=== PATIENT | male | born 1955 | race Caucasian/White ===

== ENCOUNTER 2021-08-11 14:10 | Outpatient (CLI) | payer MEDICARE | END 2021-08-11 14:11 | disposition home or self-care (01) | LOC: LABBT 14:10 | PROVIDERS: ATTEND Specialist | DX: Z01.818 Encounter for other preprocedural examination (principal); Z20.822 Contact with and (suspected) exposure to COVID-19 | CPT/HCPCS: 87811; 93005; 93010 ==

== ENCOUNTER 2021-08-16 09:04 | Day surgery (SDC) | payer MEDICARE ==
[2021-08-15 09:40] VITALS: BMI 31.1
[2021-08-16 09:38] LABS: #Basophils 0.1 thou/uL (0.0-0.2); #Eosinphils 0.3 thou/uL (0.0-0.7); #Lymphocytes 1.7 thou/uL (1.20-3.40); #Monocytes 1.3 thou/uL (0.11-0.59); #Neutrophils 8.3 thou/uL (1.40-6.50); %Basophils 0.8 % (0.0-1.0); %Eosinophils 2.5 % (0.0-10.0); %Lymphocytes 14.4 % (21.0-51.0); %Monocytes 10.9 % (0.0-10.0); %Neutrophils 71.4 % (42.0-75.0); Hemoglobin 11.2 g/dL (14.0-18.0); Mean Corpuscular HGB CONC 30.2 g/dL (32.0-36.0); Mean Corpuscular Hemoglobin 28.4 pg (27.0-31.0); Mean Corpuscular Volume 93.9 fL (78.0-98.0); Mean Platelet Volume 7.6 fL (7.4-10.4); Platelet Count 140 thou/uL (130-400); RBC Distribution Width 15.4 % (11.5-14.5); Red Blood Cell (RBC) Count 3.94 mill/uL (4.70-6.10); White Blood Cell (WBC) Count 11.6 thou/uL (4.8-10.8)
[2021-08-16 09:55] LABS: Anion Gap 13 mmol/L (10-20); BUN (Urea Nitrogen) 32 mg/dL (8.4-25.7); Calc. Creatinine Clearance 22 mL/min (70-130); Calcium 8.3 mg/dL (7.8-10.44); Carbon Dioxide 29 mmol/L (23-31); Chloride 101 mmol/L (98-107); Estimated GFR 13; Glucose 95 mg/dL (80-115); Sodium 139 mmol/L (136-145)
[2021-08-16] MEDS ORDERED: Heparin 5,000 UNITS/ML VIAL ONE (10:10)
[2021-08-16] MEDS ORDERED: Lidocaine 2% PF 5 ML VIAL ONE (10:10)
[2021-08-16] MEDS ORDERED: Bupivacaine PF 0.5% 30 ML VIAL ONE (10:10)
[2021-08-16] MEDS ORDERED: Lidocaine 1% w/Epinephrine 1:100K 20 ML VIAL ONE (10:12)
[2021-08-16] MEDS ORDERED: Protamine Sulfate 50 MG/5 ML VIAL ONE (10:12)
[2021-08-16] MEDS ORDERED: fentaNYL Citrate/PF 100 MCG/2 ML SYRINGE ONE (10:15)
[2021-08-16] MEDS ORDERED: SUGAMMADEX SODIUM 200 MG/2 ML VIAL ONE (10:16)
[2021-08-16] MEDS ORDERED: CEFAZOLIN 2 GM VIAL ONE (10:21)
[2021-08-16] MEDS ORDERED: Sodium Chloride 0.9% 100 ML ONE (10:22)
[2021-08-16] MEDS ORDERED: Heparin 10,000 UNITS/ 10 ML VIAL ONE (10:35)
[2021-08-16] MEDS ORDERED: Heparin 1,000 UNITS/ML VIAL ONE (14:09)
== END 2021-08-16 14:20 | disposition home or self-care (01) ==
LOC: SDC 09:04
PROVIDERS: ATTEND Specialist
PROC: 0WHG43Z Insertion of Infusion Device into Peritoneal Cavity, Percutaneous Endoscopic Approach (ICD-10-PCS; principal; 2021-08-16)
PROC: 031C0ZF Bypass Left Radial Artery to Lower Arm Vein, Open Approach (ICD-10-PCS; 2021-08-16)
DX: N18.6 End stage renal disease (principal); K74.5 Biliary cirrhosis, unspecified; R18.8 Other ascites; Z79.899 Other long term (current) drug therapy; Z88.5 Allergy status to narcotic agent; Z88.8 Allergy status to other drugs, medicaments and biological substances; Z99.2 Dependence on renal dialysis
CPT/HCPCS: 80048; 85025; C1776; J0690; J1644; J2001; J2720; J3490; S0020

== ENCOUNTER 2021-09-05 16:53 | Inpatient (IN) | payer MEDICARE ==
[~2021-09-05 16:53] MED LIST: Iopamidol 370 76% 100 ML VIAL ONE
[2021-09-05 17:34] LABS: Hemoglobin 11.9 g/dL (14.0-18.0); Mean Corpuscular HGB CONC 31.1 g/dL (32.0-36.0); Mean Corpuscular Volume 90.1 fL (78.0-98.0); Mean Platelet Volume 8.4 fL (7.4-10.4); Platelet Count 109 thou/uL (130-400); RBC Distribution Width 14.7 % (11.5-14.5); Red Blood Cell (RBC) Count 4.24 mill/uL (4.70-6.10); White Blood Cell (WBC) Count 7.9 thou/uL (4.8-10.8)
[2021-09-05 18:15] LABS: Band 4 % (5-11); Lymphocytes 9 % (21-51); MDiff Complete? YES; Monocytes 12 % (0-10); Neutrophil 75 % (42-75); Platelet Morphology Comment Appears Decreased; RBC Morphology Normal
[2021-09-05 18:20] LABS: SARS-CoV-2 NAA Rapid Test DETECTED (NotDetected)
[2021-09-05 18:29] LABS: ALT (SGPT) 14 U/L (8-55); AST (SGOT) 31 U/L (5-34); Albumin 2.7 g/dL (3.4-4.8); Alkaline Phosphatase 105 U/L (40-110); Anion Gap 12 mmol/L (10-20); BUN (Urea Nitrogen) 18 mg/dL (8.4-25.7); Bilirubin, Total 0.7 mg/dL (0.2-1.2); Calc. Creatinine Clearance 0 mL/min (70-130); Calcium 7.7 mg/dL (7.8-10.44); Carbon Dioxide 28 mmol/L (23-31); Chloride 98 mmol/L (98-107); Estimated GFR 21; Globulin 3.5 g/dL (2.4-3.5); Glucose 105 mg/dL (80-115); Potassium 3.4 mmol/L (3.5-5.1); Protein, Total 6.2 g/dL (5.8-8.1); Sodium 135 mmol/L (136-145)
[2021-09-05] MEDS ORDERED: Acetaminophen 500 MG TAB ONE ×2 (18:37)
[2021-09-05 18:51] LABS: CKMB 0.9 ng/mL (0-6.6)
[2021-09-05] MEDS ORDERED: Cefepime 2 GM VIAL ONE (20:23)
[2021-09-05] MEDS ORDERED: Vancomycin 1 GM/200 ML BAG ONE ×2 (21:43)
[2021-09-06 00:05] VITALS: BMI 29.2
[2021-09-06] MEDS: Acetaminophen 325 MG TAB PO PRN ×2 (04:27→17:23)
[2021-09-06] MEDS ORDERED: Acetaminophen 325 MG TAB PO PRN (07:58)
[2021-09-06] MEDS ORDERED: Potassium Chloride 20 MEQ TAB PO SCH (08:00)
[2021-09-06] MEDS ORDERED: [UNRECOGNIZED DRUG - OTHER] FS SCH (08:15)
[2021-09-06 08:44] LABS: Vancomycin, Random 11.3 ug/mL (See Comment)
[2021-09-06] MEDS ORDERED: Cefepime 1 GM in Sodium Chloride 0.9% 100 ML IVPB SCH (09:00)
[2021-09-06] MEDS ORDERED: Vancomycin 1 GM in Premix Bag 1 BAG IVPB SCH (09:15)
[2021-09-06] MEDS: Carvedilol 6.25 MG TAB PO SCH ×2 (09:24→16:21)
[2021-09-06] MEDS: Heparin 5,000 UNITS/ML VIAL SC SCH ×3 (09:40→20:25)
[2021-09-06] MEDS: HYDROcodone/Acetaminophen 5/325 mg Tablet PO PRN ×2 (09:53→20:24)
[2021-09-06] MEDS ORDERED: Albuterol 200 PUFF (6.7GM INHALER) INH PRN (13:35)
[2021-09-06] MEDS: Benzonatate 100 MG CAP PO PRN (16:29)
[2021-09-06] MEDS ORDERED: diphenhydrAMINE 50 MG CAP PO SCH (22:30)
[2021-09-07 05:00] LABS: Vancomycin, Random 21.3 ug/mL (See Comment)
[2021-09-07 05:12] LABS: Anion Gap 14 mmol/L (10-20); BUN (Urea Nitrogen) 33 mg/dL (8.4-25.7); Calc. Creatinine Clearance 20 mL/min (70-130); Calcium 7.4 mg/dL (7.8-10.44); Carbon Dioxide 24 mmol/L (23-31); Chloride 100 mmol/L (98-107); Estimated GFR 12; Glucose 90 mg/dL (80-115); Potassium 3.9 mmol/L (3.5-5.1); Sodium 134 mmol/L (136-145)
[2021-09-07 09:00] LABS: HBSAB Concentration Less than 8.00 mIU/mL; Hep B Surf AB Non-Reactive (NonReactive)
[2021-09-07] MEDS ORDERED: Heparin 10,000 UNITS/ 10 ML VIAL ONE (09:00)
[2021-09-07 09:01] LABS: HBSAg Index 0.74 S/CO (0-0.99); Hep B Surf Ag Non-Reactive S/CO (NonReactive)
[2021-09-07] MEDS: Ascorbic Acid 500 mg Chewable Tablet PO SCH (10:11)
[2021-09-07] MEDS: Zinc Sulfate 220 MG CAP PO SCH (10:11)
[2021-09-07] MEDS: Carvedilol 6.25 MG TAB PO SCH ×2 (10:12→19:09)
[2021-09-07] MEDS: Cefepime 1 GM in Sodium Chloride 0.9% 100 ML IVPB SCH (10:13)
[2021-09-07] MEDS: Heparin 5,000 UNITS/ML VIAL SC SCH ×3 (10:13→21:54)
[2021-09-07] MEDS: Benzonatate 100 MG CAP PO PRN (21:53)
[2021-09-07] MEDS: Acetaminophen 325 MG TAB PO PRN (21:53)
[2021-09-07] MEDS ORDERED: diphenhydrAMINE 50 MG CAP PO SCH (22:00)
[2021-09-08 04:35] LABS: Anion Gap 12 mmol/L (10-20); BUN (Urea Nitrogen) 21 mg/dL (8.4-25.7); Calc. Creatinine Clearance 25 mL/min (70-130); Calcium 7.6 mg/dL (7.8-10.44); Carbon Dioxide 26 mmol/L (23-31); Chloride 100 mmol/L (98-107); Estimated GFR 15; Glucose 86 mg/dL (80-115); Mean Corpuscular HGB CONC 31.6 g/dL (32.0-36.0); Mean Corpuscular Hemoglobin 28.8 pg (27.0-31.0); Mean Platelet Volume 8.3 fL (7.4-10.4); Platelet Count 102 thou/uL (130-400); Potassium 3.4 mmol/L (3.5-5.1); RBC Distribution Width 14.5 % (11.5-14.5); Red Blood Cell (RBC) Count 3.82 mill/uL (4.70-6.10); Sodium 135 mmol/L (136-145); White Blood Cell (WBC) Count 4.8 thou/uL (4.8-10.8)
[2021-09-08] MEDS ORDERED: diphenhydrAMINE 50 MG CAP PO PRN (08:13)
[2021-09-08] MEDS: Carvedilol 6.25 MG TAB PO SCH ×2 (08:58→17:44)
[2021-09-08] MEDS: Ascorbic Acid 500 mg Chewable Tablet PO SCH (08:58)
[2021-09-08] MEDS: Heparin 5,000 UNITS/ML VIAL SC SCH ×3 (08:59→21:27)
[2021-09-08] MEDS: Cefepime 1 GM in Sodium Chloride 0.9% 100 ML IVPB SCH (08:59)
[2021-09-08] MEDS: Zinc Sulfate 220 MG CAP PO SCH (09:00)
[2021-09-08] MEDS: Benzonatate 100 MG CAP PO PRN ×2 (09:00→21:27)
[2021-09-08] MEDS: Acetaminophen 325 MG TAB PO PRN ×2 (11:39→21:27)
[2021-09-09 09:23] LABS: Vancomycin, Random 11.5 ug/mL (See Comment)
[2021-09-09] MEDS ORDERED: Vancomycin 1 GM in Premix Bag 1 BAG IVPB SCH ×2 (10:15→13:00)
[2021-09-09 13:12] VITALS: TEMP 98.9
[2021-09-09] MEDS ORDERED: Heparin 10,000 UNITS/ 10 ML VIAL ONE (13:36)
[2021-09-09] MEDS: Carvedilol 6.25 MG TAB PO SCH (13:38)
[2021-09-09] MEDS: Heparin 5,000 UNITS/ML VIAL SC SCH (13:38)
[2021-09-09] MEDS: Ascorbic Acid 500 mg Chewable Tablet PO SCH (13:38)
[2021-09-09] MEDS: Zinc Sulfate 220 MG CAP PO SCH (13:39)
[2021-09-09 13:54] VITALS: BP 123/75
[2021-09-09] MEDS: Cefepime 1 GM in Sodium Chloride 0.9% 100 ML IVPB SCH (14:07)
== END 2021-09-09 15:50 | disposition home or self-care (01) | DRG 871 ==
LOC: ERS 16:53 → 2NO 20:28
PROVIDERS: ADMIT Internal Medicine; ATTEND Internal Medicine
PROC: 8E0ZXY6 Isolation (ICD-10-PCS; principal; 2021-09-05)
PROC: 5A1D70Z Performance of Urinary Filtration, Intermittent, Less than 6 Hours Per Day (ICD-10-PCS; 2021-09-05)
PROC: 3E03329 Introduction of Other Anti-infective into Peripheral Vein, Percutaneous Approach (ICD-10-PCS; 2021-09-05)
DX: A41.89 Other specified sepsis (principal); U07.1 COVID-19; N18.6 End stage renal disease; I21.A1 Myocardial infarction type 2; I13.2 Hypertensive heart and chronic kidney disease with heart failure and with stage 5 chronic kidney disease, or end stage renal disease; I50.32 Chronic diastolic (congestive) heart failure; J90 Pleural effusion, not elsewhere classified; F17.220 Nicotine dependence, chewing tobacco, uncomplicated; E78.00 Pure hypercholesterolemia, unspecified; F32.A Depression, unspecified; Z88.5 Allergy status to narcotic agent; Z88.8 Allergy status to other drugs, medicaments and biological substances; Z98.52 Vasectomy status; Z99.2 Dependence on renal dialysis
CPT/HCPCS: 36415; 71045; 71275; 80048; 80053; 80202; 82553; 83605; 83690; 83880; 84145; 84484; 85025; 85027; 86706; 87040; 87340; 90935; 93005; G0257; J0692; J1644; J1956; J3370; J3490; Q9967; U0002

== ENCOUNTER 2021-10-12 13:49 | Outpatient (CLI) | payer OTHER | END 2021-10-12 13:50 | disposition home or self-care (01) | LOC: RAD 13:49 | PROVIDERS: ATTEND Internal Medicine Nephrology | DX: K59.00 Constipation, unspecified (principal); T85.691A Other mechanical complication of intraperitoneal dialysis catheter, initial encounter | CPT/HCPCS: 74018 ==

== ENCOUNTER 2022-01-18 13:11 | Observation (INO) | payer MEDICARE, OTHER ==
[2022-01-18 14:38] LABS: #Basophils 0.1 thou/uL (0.0-0.2); #Eosinphils 0.3 thou/uL (0.0-0.7); #Lymphocytes 0.8 thou/uL (1.20-3.40); #Monocytes 0.7 thou/uL (0.11-0.59); #Neutrophils 6.7 thou/uL (1.40-6.50); %Basophils 0.6 % (0.0-1.0); %Eosinophils 3.8 % (0.0-10.0); %Lymphocytes 9.6 % (21.0-51.0); %Monocytes 8.2 % (0.0-10.0); %Neutrophils 77.8 % (42.0-75.0); Hemoglobin 10.9 g/dL (14.0-18.0); Mean Corpuscular Hemoglobin 31.5 pg (27.0-31.0); Mean Corpuscular Volume 95.3 fl (78.0-98.0); Mean Platelet Volume 8.6 fL (7.4-10.4); Platelet Count 87 10x3/uL (130-400); RBC Distribution Width 15.6 % (11.5-14.5); Red Blood Cell (RBC) Count 3.46 mill/uL (4.70-6.10); White Blood Cell (WBC) Count 8.6 10x3/uL (4.8-10.8)
[2022-01-18 15:00] LABS: ALT (SGPT) 14 U/L (8-55); AST (SGOT) 20 U/L (5-34); Albumin 2.4 g/dL (3.4-4.8); Alkaline Phosphatase 89 U/L (40-110); Anion Gap 12 mmol/L (10-20); BUN (Urea Nitrogen) 47 mg/dL (8.4-25.7); Bilirubin, Total 0.6 mg/dL (0.2-1.2); Calc. Creatinine Clearance 0 mL/min (70-130); Calcium 7.5 mg/dL (7.8-10.44); Carbon Dioxide 26 mmol/L (23-31); Chloride 103 mmol/L (98-107); Estimated GFR 7; Globulin 2.8 g/dL (2.4-3.5); Glucose 148 mg/dL (80-115); Potassium 3.7 mmol/L (3.5-5.1); Protein, Total 5.2 g/dL (5.8-8.1); Sodium 137 mmol/L (136-145)
[2022-01-18 15:17] LABS: CKMB 2.7 ng/mL (0-6.6)
[2022-01-18 17:59] VITALS: BMI 35.6
[2022-01-18] MEDS ORDERED: Senokot S 8.6-50 MG TAB PO PRN (18:34)
[2022-01-18] MEDS ORDERED: HYDROcodone/Acetaminophen 5/325 mg Tablet PO PRN (18:34)
[2022-01-18] MEDS ORDERED: Acetaminophen 325 MG TAB PO PRN (18:34)
[2022-01-18] MEDS ORDERED: Ondansetron ODT 4 MG TAB PO PRN (18:34)
[2022-01-18] MEDS: Carvedilol 6.25 MG TAB PO SCH (20:09)
[2022-01-18] MEDS ORDERED: Famotidine 20 MG TAB PO SCH (21:00)
[2022-01-19 06:38] LABS: #Basophils 0.1 thou/uL (0.0-0.2); #Eosinphils 0.4 thou/uL (0.0-0.7); #Lymphocytes 1.1 thou/uL (1.20-3.40); #Neutrophils 6.5 thou/uL (1.40-6.50); %Basophils 0.7 % (0.0-1.0); %Eosinophils 4.6 % (0.0-10.0); %Lymphocytes 12.5 % (21.0-51.0); %Monocytes 10.5 % (0.0-10.0); %Neutrophils 71.7 % (42.0-75.0); Hemoglobin 10.9 g/dL (14.0-18.0); Mean Corpuscular HGB CONC 31.2 g/dL (32.0-36.0); Mean Corpuscular Hemoglobin 29.8 pg (27.0-31.0); Mean Corpuscular Volume 95.3 fl (78.0-98.0); Mean Platelet Volume 8.8 fL (7.4-10.4); Platelet Count 102 10x3/uL (130-400); RBC Distribution Width 15.3 % (11.5-14.5); Red Blood Cell (RBC) Count 3.65 mill/uL (4.70-6.10)
[2022-01-19 07:03] LABS: Anion Gap 12 mmol/L (10-20); BUN (Urea Nitrogen) 47 mg/dL (8.4-25.7); Calc. Creatinine Clearance 17 mL/min (70-130); Calcium 7.7 mg/dL (7.8-10.44); Carbon Dioxide 25 mmol/L (23-31); Chloride 105 mmol/L (98-107); Estimated GFR 8; Glucose 87 mg/dL (80-115); Potassium 3.5 mmol/L (3.5-5.1); Sodium 138 mmol/L (136-145)
[2022-01-19 07:20] LABS: HBSAg Index 0.32 S/CO (0-0.99); Hep B Surf Ag Non-Reactive S/CO (NonReactive)
[2022-01-19 08:22] VITALS: TEMP 98.3
[2022-01-19] MEDS ORDERED: hydrOXYzine 25 MG TAB PO SCH (09:00)
[2022-01-19] MEDS: Carvedilol 6.25 MG TAB PO SCH (09:04)
[2022-01-19 11:39] VITALS: BP 142/77
== END 2022-01-19 16:08 | disposition home or self-care (01) ==
LOC: ERS 13:11 → INTOOBSV 15:45 → T4-A 15:45
PROVIDERS: ADMIT Internal Medicine; ATTEND Internal Medicine
DX: J90 Pleural effusion, not elsewhere classified (principal); I13.2 Hypertensive heart and chronic kidney disease with heart failure and with stage 5 chronic kidney disease, or end stage renal disease; N18.6 End stage renal disease; I50.9 Heart failure, unspecified; N17.9 Acute kidney failure, unspecified; E78.00 Pure hypercholesterolemia, unspecified; R77.8 Other specified abnormalities of plasma proteins; E83.51 Hypocalcemia; F17.220 Nicotine dependence, chewing tobacco, uncomplicated; Z79.899 Other long term (current) drug therapy; Z88.5 Allergy status to narcotic agent; Z88.8 Allergy status to other drugs, medicaments and biological substances; Z99.2 Dependence on renal dialysis; Z20.822 Contact with and (suspected) exposure to COVID-19
CPT/HCPCS: 71045; 80048; 80053; 82553; 83880; 84484; 85025 ×2; 87340; 99285; G0378 ×3; U0003; U0005; 36415

== ENCOUNTER 2022-01-29 10:40 | Emergency (ER) | payer OTHER, SELFPAY ==
[2022-01-29 11:36] LABS: #Eosinphils 0.3 thou/uL (0.0-0.7); #Lymphocytes 0.6 thou/uL (1.20-3.40); #Monocytes 1.4 thou/uL (0.11-0.59); #Neutrophils 12.9 thou/uL (1.40-6.50); %Basophils 0.2 % (0.0-1.0); %Eosinophils 1.8 % (0.0-10.0); %Lymphocytes 3.7 % (21.0-51.0); %Monocytes 9.4 % (0.0-10.0); Hemoglobin 12.2 g/dL (14.0-18.0); Mean Corpuscular HGB CONC 31.5 g/dL (32.0-36.0); Mean Corpuscular Volume 95.3 fl (78.0-98.0); Mean Platelet Volume 8.7 fL (7.4-10.4); Platelet Count 131 10x3/uL (130-400); RBC Distribution Width 15.2 % (11.5-14.5); Red Blood Cell (RBC) Count 4.08 mill/uL (4.70-6.10); White Blood Cell (WBC) Count 15.1 10x3/uL (4.8-10.8)
[2022-01-29 11:54] LABS: ALT (SGPT) 13 U/L (8-55); AST (SGOT) 20 U/L (5-34); Albumin 2.9 g/dL (3.4-4.8); Alkaline Phosphatase 88 U/L (40-110); Anion Gap 19 mmol/L (10-20); BUN (Urea Nitrogen) 54 mg/dL (8.4-25.7); Bilirubin, Total 0.6 mg/dL (0.2-1.2); Calc. Creatinine Clearance 0 mL/min (70-130); Calcium 8.2 mg/dL (7.8-10.44); Carbon Dioxide 21 mmol/L (23-31); Chloride 102 mmol/L (98-107); Estimated GFR 6; Globulin 3.7 g/dL (2.4-3.5); Glucose 122 mg/dL (80-115); Potassium 3.8 mmol/L (3.5-5.1); Protein, Total 6.6 g/dL (5.8-8.1); Sodium 138 mmol/L (136-145)
[2022-01-29 12:30] LABS: Bacteria/HPF 2+ HPF (None Seen); Bilirubin Negative (Negative); Blood, Urine 2+ (Negative); Clarity Clear (Clear); Glucose, Urine (Dipstick) 200 mg/dL (Negative); Ketone, Urine Negative (Negative); Leukocyte Negative Leu/uL (Negative); Nitrite Negative (Negative); Protein, Urine (Dipstick) 300 mg/dL (Neg-Trace); Specific Gravity, Urine 1.027 (1.002-1.036); Squamous Epithelial 0-3 HPF (0-3); Urobilinogen Normal mg/dL (Less than 2)
[2022-01-29] MEDS ORDERED: Ondansetron PF 4 MG/2 ML Vial ONE (13:47)
[2022-01-29 14:43] LABS: SARS-CoV-2 NAA Rapid Test Not Detected (NotDetected)
== END 2022-01-29 16:20 | disposition home or self-care (01) ==
LOC: ERS 10:40
DX: I13.2 Hypertensive heart and chronic kidney disease with heart failure and with stage 5 chronic kidney disease, or end stage renal disease (principal); N18.6 End stage renal disease; I50.9 Heart failure, unspecified; Z20.822 Contact with and (suspected) exposure to COVID-19; E78.5 Hyperlipidemia, unspecified; F17.220 Nicotine dependence, chewing tobacco, uncomplicated
CPT/HCPCS: 36415; 71045; 80053; 81003; 81015; 85025; 96374; J2405